=== PATIENT | female | born 1950 | race Caucasian/White ===

== ENCOUNTER 2021-09-18 14:24 | Inpatient (IN) | payer MEDICARE ==
[~2021-09-18] VITALS: Ht 154.9 cm; Wt 51.8 kg
[2021-09-18 15:13] LABS: BASO % 0.2 % (0.0-2.0); GRAN # 9.9 K/mm3 (1.4-6.5); GRAN % 86.8 % (42.2-75.2); HEMOGLOBIN 15.7 g/dl (12.5-16.0); LYMPH # 0.7 K/mm3 (1.2-3.4); LYMPH % 5.9 % (20.0-51.0); MEAN CELL VOLUME 85 fl (80.0-100.0); MEAN CORPUSCULAR HEMOGLOBIN 28 pg (27.0-31.0); MEAN CORPUSCULAR HGB CONC 33 g/dl (33.0-37.0); MEAN PLATELET VOLUME 9.9 fl (7.4-10.4); MONO # 0.7 K/mm3 (0.1-0.6); MONO % 6.1 % (1.7-9.3); PLATELET COUNT 367 K/mm3 (130-400); RED BLOOD COUNT 5.54 M/mm3 (4.10-5.30); REDCELL DISTRIBUTION WIDTH-CV 13.3 % (11.5-14.5)
[2021-09-18 15:25] LABS: ALBUMIN 3.3 gm/dL (3.4-4.8); BILIRUBIN,TOTAL 0.9 mg/dL (0.2-1.2); CALCIUM 9.2 mg/dL (8.4-10.2); CREATININE, serum 0.98 mg/dL (0.57-1.11); POTASSIUM 3.6 mmol/L (3.5-4.5); TOTAL PROTEIN 7.8 gm/dL (6.2-8.1)
[2021-09-18 17:38] LABS: COLLECTION METHOD CLEAN CATCH
[2021-09-18 17:57] LABS: MUCOUS Present /lpf; PH 5 (5-8); SQUAMOUS EPITHELIAL None Seen /hpf; URINE APPEARANCE Hazy; URINE BACTERIA None Seen /hpf; URINE BILIRUBIN Negative (NEGATIVE); URINE BLOOD 1+ (NEGATIVE); URINE COLOR Yellow; URINE GLUCOSE Negative (NEGATIVE); URINE KETONE 1+ (NEGATIVE); URINE LEUKOCYTE ESTERASE Negative (NEGATIVE); URINE NITRATE Negative (NEGATIVE); URINE PROTEIN(semi-quant) 2+ (NEGATIVE); URINE UROBILINOGEN Negative (NEGATIVE)
--- NOTE | 2021-09-18 19:45 | NUR ---
Initial assessment done- just up from ER around 1814 eliseo- VSS, pt was sound asleep- did awaken to assess, drowsy, oriented to name and knows her birthday but does not know date/year - speaks very softly, goes right back to sleep-- denies pain, SOB, o2 at 2L/nc, IV fluids of NS at 100cc/hr, not answering questions- going back to sleep- tried to ask if she has family? no answer,
[2021-09-18 20:00] VITALS: BP 144/68; PULSE 73
[2021-09-18 22:01] VITALS: BP 158/64; PULSE 63; TEMP 98.1
[2021-09-18 22:16] VITALS: BP 149/81; PULSE 69
[2021-09-19] VITALS (7 sets, daily range): BP systolic 154–173; BP diastolic 88–100; PULSE 70–107; TEMP 97.6–103.2
--- NOTE | 2021-09-19 05:06 | NUR ---
Much more awake, alert this morning, VSS, afebrile during the night, o2 sats 92% on 2 L/nc, oriented to person ,place date and year- more unsure of events that lead up to her being in the hospital- using call light appropriately. Did walk with assist to bathroom during the night, bed alarm on. IV fluids of NS at 100cc/hr.
[2021-09-19 06:55] LABS: HEMATOCRIT 41.7 % (37.0-47.0); MEAN CELL VOLUME 85 fl (80.0-100.0); MEAN CORPUSCULAR HEMOGLOBIN 29 pg (27.0-31.0); MEAN CORPUSCULAR HGB CONC 34 g/dl (33.0-37.0); MEAN PLATELET VOLUME 10.2 fl (7.4-10.4); PLATELET COUNT 349 K/mm3 (130-400); REDCELL DISTRIBUTION WIDTH-CV 13.3 % (11.5-14.5)
[2021-09-19 07:16] LABS: C-REACTIVE PROTEIN 13.71 mg/dL (0.00-0.50); CALCIUM 8.1 mg/dL (8.4-10.2); CREATININE, serum 0.75 mg/dL (0.57-1.11); MAGNESIUM 2.2 mg/dL (1.6-2.6); POTASSIUM 3.5 mmol/L (3.5-4.5)
[2021-09-19 07:42] LABS: BAND 20 % (0-10); LYMPHOCYTE 7 % (20.0-51.0); NEUTROPHILS 70 % (42.0-75.2); PLATELET ESTIMATE NORMAL (NORMAL)
--- NOTE | 2021-09-19 11:14 | NUR ---
AFTER GETTING UP TO COMMODE, PT FOUND TO BE VERY WEAK AND TIRED. WHEN BACK TO BED O2 SATS WERE IN LOW 80'S ON 3 L NC. RT NOTIFIED, PT NOW REQUIRING 10 L HIGH FLOW NC TO MAINTAIN SATS AT 90%.
--- NOTE | 2021-09-19 14:20 | NUR ---
PT REFUSING HEAD CT AT THIS TIME.
--- NOTE | 2021-09-19 16:20 | NUR ---
[employer] maintenance worker attempted to contact patient x3. Patient's address listed is at [facility]. Contact made to attempt to obtain emergency contact information but the patient has not lived there since 2014. Patient's friend Dahiana contacted. She was unaware of the patient being in the hospital. She is unaware of where the patient is currently living stating "she wont give anyone her address". Dahiana states that the patient does have children, most of whom live in other countries. Dahiana knew of a daughter named Yasmin and had a phone number as [phone]. Attempt was made to contact the daughter and was unsuccessful.
[2021-09-19 19:21] LABS: ARTERIAL BLD GAS O2 SATURATION 97.6 % (92-100); ARTERIAL BLD GAS TCO2 CT 22.8; ARTERIAL BLOOD GAS BASE EXCESS 0.1 (-2-2); ARTERIAL BLOOD GAS HCO3 21.9 meq/L (22-26); ARTERIAL BLOOD GAS PO2 95.4 mmHg (80-100); ARTERIAL BLOOD GAS pH 7.51 (7.35-7.45)
--- NOTE | 2021-09-19 19:44 | NUR ---
PT WITH INCREASING OXYGEN NEEDS THROUGHOUT THE SHIFT. PT REFUSING REMDESIVR, LOVENOX, DECADRON AND HEAD CT THIS SHIFT DESPITE EFFORTS TO EDUCATE. PT BECAME FEBRILE THIS EVENING, PT BECOME LESS ORIENTED WHILE FEBRILE. PT NEEDED ASSISTANCE TO BEDSIDE COMMODE D/T DISORIENTATION AND EXTREME FATIGUE. PT NOW REQUIRING 15 L HIGH FLOW NC. RT AND HOSPITALIST NOTIFIED. BLOOD GASES DRAWN.
--- NOTE | 2021-09-19 22:39 | NUR ---
ALERT AND OX4. DENIES SOA, CHEST PAIN OR DIZZY. STATES SHES FINE. INITALLY WASNT SURE ABOUT TAKING DOXY, AND LISINPRIL BUT DID AFTER EXPLAINING MEDS BUT STILL VERY HESITANT. TYL WORKING TO BRING FEVER DOWN. POC DISCUSSED. CALL LIGHT WI REACH.
[2021-09-20 05:04] VITALS: BP 160/74; PULSE 80; TEMP 98.4
[2021-09-20 07:47] VITALS: BP 1691/86; PULSE 94; TEMP 103.1
--- NOTE | 2021-09-20 10:36 | NUR ---
PT RESTING IN BED. MORNING MEDICATIONS GIVEN. SHIFT ASSESSMENT COMPLETED. PT NON-RESPONSIVE TO THIS RN's QUESTION AND COMMANDS. WILL CONTINUE TO MONITOR.
[2021-09-20 12:02] LABS: HEMATOCRIT 47.5 % (37.0-47.0); HEMOGLOBIN 14.7 g/dl (12.5-16.0); MEAN CORPUSCULAR HEMOGLOBIN 29 pg (27.0-31.0); MEAN CORPUSCULAR HGB CONC 31 g/dl (33.0-37.0); MEAN PLATELET VOLUME 9.7 fl (7.4-10.4); PLATELET COUNT 382 K/mm3 (130-400); RED BLOOD COUNT 5.11 M/mm3 (4.10-5.30); REDCELL DISTRIBUTION WIDTH-CV 13.5 % (11.5-14.5)
[2021-09-20 12:03] LABS: MEAN CELL VOLUME 93 fl (80.0-100.0)
[2021-09-20 12:14] LABS: C-REACTIVE PROTEIN 8.31 mg/dL (0.00-0.50); CALCIUM 8.5 mg/dL (8.4-10.2); CREATININE, serum 0.69 mg/dL (0.57-1.11); POTASSIUM 3.1 mmol/L (3.5-4.5)
[2021-09-20 12:43] VITALS: BP 152/82; PULSE 83; TEMP 97.7
--- NOTE | 2021-09-20 16:15 | NUR ---
Call Person made a report to Adult Protective Services in reference to condition of patient's home. CARMITA collaborated with RNLaura who advised patient is not responsive to any questions or commands. CARMITA contacted patient's daughter, Yasmin (ph#[phone]) who advised she lives in [place] at this time and that patient has no local family. Yasmin advised patient is not and has six children total. Yasmin will have to follow up on information for patient's six children as she is not in contact with all of them. Yasmin states her older brother, Ramakrishna lives in [place]. Yasmin advised to her knowledge patient does not have a primary care physician as she is "not pro medicine". Yasmin advised patient is normally independent with ADLS and does not use any DME. Yasmin does not believe patient has DPOA-HC. CARMITA advised Yasmin that post acute rehab is recommended. Yasmin is unsure if patient would be open to this. CARMITA contacted [place] with [facility] and gave referral.
[2021-09-20 17:00] VITALS: BP 156/81; PULSE 72; TEMP 98.7
--- NOTE | 2021-09-20 18:27 | NUR ---
R SIDE OF FACE APPEARS TO BE DROPPING. PT IS ABLE TO SMILE AND STICK OUT TONGUE. IS FOLLOWING VERBAL COMMANDS. HAS NORMAL STRENGTH IN ALL EXTREMITIES.
[2021-09-20 19:45] VITALS: BP 151/91; PULSE 80; TEMP 96.9
--- NOTE | 2021-09-20 23:11 | NUR ---
ALERT AND OX3. QUIET AND DOES NOT ANSWER QUESTION, SEEMS TO IGNORE WHEN ASKING HER QUESTIONS. SHE DID TAKE DOXY AND EFF K. INFORMED PT OF POC, DID NOT RESPOND TO NURSE FOR THAT EITHER. CALL LIGHT WI REACH.
[2021-09-21] VITALS (182 sets, daily range): BP systolic 140–184; BP diastolic 85–115; PULSE 80–110; TEMP 97.4–98.4; O2SAT 79–95
[2021-09-21 07:24] LABS: HEMATOCRIT 44.2 % (37.0-47.0); MEAN CORPUSCULAR HEMOGLOBIN 29 pg (27.0-31.0); MEAN CORPUSCULAR HGB CONC 34 g/dl (33.0-37.0); MEAN PLATELET VOLUME 10.2 fl (7.4-10.4); PLATELET COUNT 419 K/mm3 (130-400); RED BLOOD COUNT 5.23 M/mm3 (4.10-5.30); REDCELL DISTRIBUTION WIDTH-CV 13.2 % (11.5-14.5)
[2021-09-21 07:30] LABS: MEAN CELL VOLUME 85 fl (80.0-100.0)
[2021-09-21 07:40] LABS: C-REACTIVE PROTEIN 8.62 mg/dL (0.00-0.50); CALCIUM 8.9 mg/dL (8.4-10.2); CREATININE, serum 0.66 mg/dL (0.57-1.11); MAGNESIUM 1.9 mg/dL (1.6-2.6); POTASSIUM 3.4 mmol/L (3.5-4.5)
[2021-09-21 08:03] LABS: BAND 27 % (0-10); LYMPHOCYTE 6 % (20.0-51.0); METAMYELOCYTE 1 % (0-0); NEUTROPHILS 60 % (42.0-75.2); NUCLEATED RED BLOOD CELL 1 (0-6); PLATELET ESTIMATE NORMAL (NORMAL)
[2021-09-21 10:08] LABS: ARTERIAL BLD GAS O2 SATURATION 91.4 % (92-100); ARTERIAL BLD GAS TCO2 CT 23.3; ARTERIAL BLOOD GAS HCO3 22.5 meq/L (22-26); ARTERIAL BLOOD GAS PCO2 28.1 mmHg (35-45); ARTERIAL BLOOD GAS PO2 55.6 mmHg (80-100); ARTERIAL BLOOD GAS pH 7.52 (7.35-7.45)
--- NOTE | 2021-09-21 10:09 | NUR ---
PT RESTING IN BED. A&O X3 THIS MORNING. MORNING MEDICATIONS GIVEN. SHIFT ASSESSMENT COMPLETED. PT HAD A SOFT FORMED BOWEL MOVEMENT THIS MORNING. DENIES ANY PAIN. WILL CONTINUE TO MONITOR.
--- NOTE | 2021-09-21 10:49 | NUR ---
THIS RN WAS CALLED BY TELEMETRY AND NOTIFIED OF HEART RATE SUSTAINED IN THE 120s. VITALS OBTAINED. BP 188/122, O2 88%, HR 128, RR 22. RT AND DR. GONZALEZ CONTACTED.
--- NOTE | 2021-09-21 11:12 | NUR ---
dope worker contacted patient via telephone due to COVID. Patient stated that she lives alone and has been independent with her activities of daily living, including driving. Worker encouraged patient to work with therapies, as she had declined physical therapy request previously. Occupational therapy recommends post acute rehab. Awaiting [facility] referral and will plan for rehab placement upon discharge planning.
[2021-09-21 11:51] LABS: ARTERIAL BLD GAS O2 SATURATION 86.7 % (92-100); ARTERIAL BLOOD GAS BASE EXCESS 0.8 (-2-2); ARTERIAL BLOOD GAS HCO3 21.2 meq/L (22-26); ARTERIAL BLOOD GAS PCO2 24.5 mmHg (35-45); ARTERIAL BLOOD GAS pH 7.56 (7.35-7.45)
[2021-09-21 11:52] LABS: ARTERIAL BLOOD GAS PO2 46.4 mmHg (80-100)
--- NOTE | 2021-09-21 12:44 | NUR ---
CALLED REPORT DOWN TO ICU, STATE THEY WILL CALL ME BACK WHEN A BED IS READY.
--- NOTE | 2021-09-21 15:21 | NUR ---
I visited with patient at length regarding PICC placement. Patient is tearful. She nodded her head yes when I asked if she was overwhelmed, scared, and tired. Reassured patient. Patient kept repeating that I do not want a visit about this. "I want to be left alone". I attempted again to discuss PICC placement and she is not receptive. I will return in a.m. and discuss PICC placement again at that time.
--- NOTE | 2021-09-21 15:28 | NUR ---
Patient on 60 liters of oxygen and is being transferred down to ICU. SW notified ICU SW.
[2021-09-21 17:14] LABS: ARTERIAL BLD GAS O2 SATURATION 86.4 % (92-100); ARTERIAL BLD GAS TCO2 CT 22.1; ARTERIAL BLOOD GAS BASE EXCESS -0.6 (-2-2); ARTERIAL BLOOD GAS HCO3 21.3 meq/L (22-26); ARTERIAL BLOOD GAS PCO2 28.4 mmHg (35-45); ARTERIAL BLOOD GAS pH 7.49 (7.35-7.45)
[2021-09-21 17:15] LABS: ARTERIAL BLOOD GAS PO2 48.7 mmHg (80-100)
--- NOTE | 2021-09-21 17:48 | NUR ---
REPORT GIVEN TO JOSUÉ MONTES.
--- NOTE | 2021-09-21 18:30 | NUR ---
Received report from JOSUÉ Garcia. All medications verified and all questions answered. Patient resting in bed in airborne/contact precautions d/t positive covid test result. VSS. Patient on airvo at 60L at 95% Will resume care of patient at this time.
[2021-09-22] VITALS (504 sets, daily range): BP systolic 62–184; BP diastolic 38–127; PULSE 38–81; TEMP 97.5–98.2; O2SAT 76–100
--- NOTE | 2021-09-22 00:31 | NUR ---
0031 - this RN notified Olivia that patient had taken bipap mask off and was fighting staff when staff attempting to put airvo or bipap mask on. Pts sats dropped into the low 80s. this RN placed mitts on patient and was able to get airvo back on patient. pt becoming increasingly confused and swatting at staff hands when attempting to put airvo on. this RN notified Olivia of patient sats decreasing and patient becoming more confused and restless. This RN administered 0.5mg of ativan IV. 0035 - This RN notified Dr. Deutsch of patient not keeping airvo or bipap on and sats decreasing as low at 78% and pt becoming more confused and drowsy. Dr. Deutsch stated that pt would need to be intubated. 37 - Olivia notified of Dr. Deutsch suggesting pt needing intubated 004 - Olivia at bedside assessing patient and attempting to call pts daughter. pt no longer verbally responsive and appearing more drowsy. VSS 0051 - pt BP decreased to 69/42 with a MAP of 59, hr of 53 at 85% SpO2. this RN received order from Olivia to start 1L NS bolus. 0105 - received order from [place] to start levophed gtt. levophed gtt started at this time at 21.3mls/hr in peripheral line. Dr. Esparza at bedside to begin intubation. 75mg of succs and 20mg of etomidate given at this time prior to intubation 0109 - glidescope used to assisst with intubation 0112 - ETT placed, bilateral breath sounds heard, no color change noted on CO2 detector, tube placed at 24 at the teeth 0115 - ETT exchanged 0117 - bilateral breath counds heard, color change noted on CO2 detector 0124 - chest xray to verify tube placement completed 0130 - low tidal volumes noted on ventilator monitor Dr. Carreon at bedside to exchange ETT, pt started on propofol gtt at this time 0138 - ETT exchanged 0150 - ETT exchanged again d/t leak in ETT cuff, 10mg of vecuronium given at this time. Dr. Carreon at bedside. 0152 - patient received 1mg of atroping at this time d/t HR of 38BPM, at this time RT began bagging patient with SpO2 of 79% 0158 - ETT exchanged, CO2 change detected, bilateral breath sounds heard, ETT 24 at the teeth. Vent settings at 380 TV, RR 16, PEEP 14, FIO2 100% 0200- OG placed 0203 - CXR to verify placement completed. CXR read by Dr. Carreon, ETT pulled back 2cm. 0210 - blanco placed at this time 0130 - patient started on propofol gtt at 6.8mls/hr and fentanyl at 1.3mls/hr
[2021-09-22 03:25] LABS: ARTERIAL BLOOD GAS PCO2 30.6 mmHg (35-45); ARTERIAL BLOOD GAS pH 7.51 (7.35-7.45)
[2021-09-22 03:26] LABS: ARTERIAL BLD GAS O2 SATURATION 88.6 % (92-100); ARTERIAL BLOOD GAS BASE EXCESS 1.5 (-2-2); ARTERIAL BLOOD GAS HCO3 23.6 meq/L (22-26); ARTERIAL BLOOD GAS PO2 49.1 mmHg (80-100)
[2021-09-22 03:43] LABS: HEMATOCRIT 41.6 % (37.0-47.0); HEMOGLOBIN 14.4 g/dl (12.5-16.0); MEAN CELL VOLUME 83 fl (80.0-100.0); MEAN CORPUSCULAR HEMOGLOBIN 29 pg (27.0-31.0); MEAN CORPUSCULAR HGB CONC 35 g/dl (33.0-37.0); MEAN PLATELET VOLUME 9.6 fl (7.4-10.4); PLATELET COUNT 423 K/mm3 (130-400); RED BLOOD COUNT 5.02 M/mm3 (4.10-5.30); REDCELL DISTRIBUTION WIDTH-CV 13.2 % (11.5-14.5)
--- NOTE | 2021-09-22 03:45 | NUR ---
BLOOD TINGED SECRETIONS
[2021-09-22 03:55] LABS: ARTERIAL BLD GAS O2 SATURATION 99.5 % (92-100); ARTERIAL BLD GAS TCO2 CT 21.3; ARTERIAL BLOOD GAS BASE EXCESS -3.1 (-2-2); ARTERIAL BLOOD GAS HCO3 20.3 meq/L (22-26); ARTERIAL BLOOD GAS pH 7.42 (7.35-7.45)
[2021-09-22 03:56] LABS: ARTERIAL BLOOD GAS PO2 290.4 mmHg (80-100)
[2021-09-22 04:15] LABS: C-REACTIVE PROTEIN 6.2 mg/dL (0.00-0.50); CALCIUM 8.3 mg/dL (8.4-10.2); CREATININE, serum 0.76 mg/dL (0.57-1.11); MAGNESIUM 1.9 mg/dL (1.6-2.6); PHOSPHOROUS 3.3 mg/dL (2.3-4.7); POTASSIUM 3.6 mmol/L (3.5-4.5)
[2021-09-22 05:04] LABS: BAND 19 % (0-10); BASOPHIL 1 % (0-2); LYMPHOCYTE 5 % (20.0-51.0); METAMYELOCYTE 5 % (0-0); NEUTROPHILS 64 % (42.0-75.2); PLATELET ESTIMATE INCREASED (NORMAL)
[2021-09-22 05:07] LABS: TEAR DROP CELLS 1+
--- NOTE | 2021-09-22 05:36 | NUR ---
Sedation vacation not attempted d/t patient being newly intubated and agitated and restless when sedation medication decreased
--- NOTE | 2021-09-22 08:45 | NUR ---
Dr. Forutne rounding on unit. Requests asistance from this RN related to plan of care. Yesterday when he rounded on patient she agreed that she would like to be on the ventilator if she needed it, but she did not want IV medications for COVID treatment. Patient now intubated & he questions if family would like to start IV medications for COVID. This RN called the patient's daughter (Yasmin [phone]). This RN discussed that the patient does not have a DPOA or a living will. The hospital must follow guidance from the [facility] regarding decision makers. The patient's 6 children are all shared decision makers; the patient is not . Yasmin stated that the last time she talked with her mother she stated "have the state make decisions about me." Yasmin advised that her & her siblings have been estranged from their mother for decades. The patient has a sister that lives in [place], but Yasmin was not sure of their relationship. Advised Yasmin that someone from the family would need to be the spokesperson for the other siblings & that social work would be contact about further contact information. Briefly discussed the option of guardianship, but advised that it was not a quick process & there would need to be decisions made daily for their mother. Dr. Fortune talked with Yasmin & gave clinical update. Yasmin was on speaker phone for her conversation with Dr. Fortune. Yasmin repeated several times that she would continue with her mother's wishes & not to give the IV medications for COVID.
--- NOTE | 2021-09-22 09:00 | NUR ---
Patient's daughter, Yasmin, calls this RN stating that she talked with some of her siblings. They all agree that Ramakrishna will be the decision maker. Advised that we need to hear from all of her siblings that Ramakrishna will be the decision maker. Yasmin provided this RN with 2 of her sisters phone numbers that lived internationally. Yasmin also provided this RN with the patient's sister's phone number in [facility] (Laura) but stated that she is having health issues herself & it would not be good to contact her. Laura speaks fluent Vietnamese & would be able to talk to the patient when she is able. Advised Yasmin again that all of the siblings must be on the same page in regards to plan of care. Yasmin brought up her mother's wishes for the "state" to make her decisions. Advised that guardianship is a long process & we would need to discuss with each of the patient's children prior to pursuing. Yasmin will talk with her brother to get phone numbers for her other siblings. Daughter - Blanka [phone] Daughter - Denisa [phone] Sister - Laura [phone]
--- NOTE | 2021-09-22 10:00 | NUR ---
Patient's daughter Yasmin calls this RN requesting a family meeting soon. 4 of the patient's children live internationally & later in the day would not be an ideal time. Arranged Zoom meeting & information sent to Yasmin to share with her siblings. Meeting time is 1030. Dr. Fortune & Dr. Salter informed at 1010 of meeting time.
--- NOTE | 2021-09-22 10:30 | NUR ---
Guerline Baez (Social Work) & this RN met via Zoom with patient's siblings. Dr. Fortune provided family with clinical update. This RN advised family on the decision making hierarchy that we must follow based on [place] statute. Briefly discussed the option for guardianship, but the time needed if that is what they would agree to do. All of the children agree that they want to follow their mother's wishes & not pursue the IV medications for COVID. Ramakrishna stated that they do not want life saving measure or life support for their mother. Dr. Fortune questioned family on whether or not they wanted to continue with the ventilator since it is a form of lide support. All children agreed that patient should be removed from ventilator & comfort care measures should be initiated. Family denied catholic or spiritual traditions that need to be honored. They will discuss post mortem plans. Ramakrishna will be the contact for future communication [phone]. Children in attendance, by order, via Zoom: Denisa, daughter Iris, daughter Ramakrishna, son Blanka, daughter Lony, daughter Yasmin, daughter
--- NOTE | 2021-09-22 10:48 | NUR ---
frog or oyster farmworker attended family meeting with inspector floor sub assembly Dr.Singh Lorraine via zoom with the patients 6 children listed below by order: 1- Orley, Daughter 2- Iris, Daughter 3-Ramakrishna, Son 4-Iris, Daughter 5-Yasmin, Daughter The children are very adamant about respecting the patients wishes.All children are in agreement that the patient would not want to be intubated or any other life saving measures. After a detailed discussion form the physician including the education from the physician that if we were to extubate the patient, she would likely not survive. All children verbalize their understanding of this and wish to proceed with extubation. Children verbalize that the patient has no cultural traditions that would need to be respected. Children have appointed the patient's son Ramakrishna ([phone]) as the central contact to call once the patient passes.
--- NOTE | 2021-09-22 12:50 | NUR ---
PT GIVEN PAIN AND ANXIETY MEDICATIONS. PT EXTUBATED FOR COMFORT. PT RESTING COMFORTABLY. WILL CONTINUE TO MOTNIOR
--- NOTE | 2021-09-22 17:40 | NUR ---
REPORT CALLED TO CHYNA MOSES. ALL QUESTIONS ANSWERED.
--- NOTE | 2021-09-22 18:25 | NUR ---
Pt transported to room 301. Lorraine RN met bedside. Pt repositioned in bed. Call light given. All questions answered.
--- NOTE | 2021-09-22 18:39 | NUR ---
Patient to room 301 by bed. Patient placed on right side. Valencia intact. IV CDI. Patient positioned for comfort. Comfort care in place. Covid precautions in place. Call light within reach
[2021-09-23 08:56] VITALS: BP 165/94; PULSE 77; TEMP 97.9
--- NOTE | 2021-09-23 10:29 | NUR ---
PERFORMED A BEDSIDE SWALLOW STUDY ON PT AND SHE HAS NO ISSUES. NOTIFIED DR. GONZALEZ AND WAS DIRECTED TO CONTINUE WITH REGULAR DIET TOLERATED.
--- NOTE | 2021-09-24 04:59 | NUR ---
Patient resting quietly, has been sitting up and talking periodically throughout shift, drinking fluids, denies pain, comfort care continues.
[2021-09-24 08:22] VITALS: BP 143/86; PULSE 90; TEMP 97.9
--- NOTE | 2021-09-24 08:24 | NUR ---
PT SITTING UP IN BED EATING BREAKFAST. MORNING MEDICATION GIVEN. SHIFT ASSESSMENT COMPLETED. CRACKLES NOTED WHEN AUSCULTATED. PICC LINE FLUSHES AND HAS GOOD RETURN. CURRENTLY ON 2L NC. DENIES ANY PAIN. FEELS LIKE SHE NEEDS TO HAVE A BOWEL MOVEMENT, GOT UP TO THE BATHROOM AND UNSUCESSFUL. O2 SAT IN THE LOW 80S. WILL CONTINUE TO MONITOR.
--- NOTE | 2021-09-24 14:50 | NUR ---
Antoine tried to call (covid +) pt to talk about discharge options. No answer Comfort care etc.. Dr. Salter called Antoine to request we speak to pt, because pt is refusing help.
--- NOTE | 2021-09-24 15:46 | NUR ---
Sw retried to call pt at 3:45pm via phone due to covid +. Sw to call down to medical floor.
[2021-09-24 19:38] VITALS: BP 135/78; PULSE 94; TEMP 98.1
[2021-09-25 01:39] VITALS: BP 149/91; PULSE 81; TEMP 98.1
[2021-09-25 03:46] VITALS: BP 154/89; PULSE 81; TEMP 98.4
--- NOTE | 2021-09-25 06:32 | NUR ---
PT HAD AN UNEVENTFUL NIGHT. AT END OF SHIFT PT SEEMED ANXIOUS THAT SHE IS STILL IN THE HOSPITAL. PT ASKED IF SHE COULD LEAVE TO RUN [facility] AND THEN RETURN TO HOSPITAL AFTER DONE WITH [facility] AND BILLS PAID. SHE SHOWED SOME INTEREST IN LEARNING ABOUT MEDICATIONS. THIS RN INFORMED HER THAT SHE CAN MAKE ANY DECISION ABOUT HER MEDICAL CARE. THIS RN WILL PASS THE INFORMATION TO DAYSHIFT NURSE AND TO SOCIAL WORK OR PROVIDER. THIS RN IS CONCERNED THAT PT DOES NOT HAVE ENOUGH KNOWLEDGE TO MAKE DECISIONS. PT IS STILL ON 2 L AND RESPIRATIONS SOUND LABORED, BUT PT DENIES ANY INCREASE OF OXYGEN.
[2021-09-25 08:46] VITALS: BP 133/70; PULSE 86; TEMP 97.8
--- NOTE | 2021-09-25 10:17 | NUR ---
PT RESTING IN BED. MORNING MEDICATIONS GIVEN. ASSESSMENT COMPLETED. PICC LINE FLUSHES AND HAS GOOD BLOOD RETURN. EAGER TO BE DISCHARGED, STATES SHE HAS "ERRANDS TO RUN." HAD A FORMED SOFT STOOL THIS MORNING. DENIES PAIN OR ANY NEEDS. WILL CONTINUE TO MONITOR.
[2021-09-26 05:44] VITALS: BP 164/89; PULSE 88; TEMP 98
--- NOTE | 2021-09-26 07:46 | NUR ---
PT IS ASKING TO GET IN CONTACT WITH A FRIEND, MARY CRUZ, SHE DOES NOT HAVE THE NUMBER. PT STATES HER PHONE HAS BEEN TURNED OFF WHILE IN THE HOSPITAL, SHE DOES NOT HAVE ANYONE MANAGING HER FINANCES WHILE SHE IS HERE. INFORMED PT THAT SOCIAL WORK HAS BEEN ATTEMPTING TO CONTACT HER ON HER ROOM PHONE, SHE WILL LISTEN FOR THAT TODAY. HAS BEEN CONFUSED MOST OF THE NOC, ASKING TO USE RESTROOM TO VOID, WASN'T UNDERSTANDING THE BANKS WAS IN PLACE, ALSO ASKING TO HAVE PEOPLE CALLED DURING THE NOC, SEEMS MORE CLEAR NOW.
--- NOTE | 2021-09-26 09:30 | NUR ---
PT ALERT AND ORIENTED X3. DISORIENTED TO DATE. PT LUNGS DIMINISHED IN ALL LOBES. PT HAS 2+ PULSES IN ALL EXTREMITIES, CAP REFILL <3S. PT ON PHONE WITH FRIEND, STATING WISHES TO GO HOME. PT CATHETER IN PLACE, DRAINING CLEAR YELLOW. PT HAS CALL LIGHT WITHIN REACH, REQUESTING PEN AND PAPER.
[2021-09-26 10:30] LABS: HEMATOCRIT 40.2 % (37.0-47.0); HEMOGLOBIN 13.8 g/dl (12.5-16.0); MEAN CELL VOLUME 83 fl (80.0-100.0); MEAN CORPUSCULAR HEMOGLOBIN 28 pg (27.0-31.0); MEAN CORPUSCULAR HGB CONC 34 g/dl (33.0-37.0); MEAN PLATELET VOLUME 9.5 fl (7.4-10.4); PLATELET COUNT 256 K/mm3 (130-400); RED BLOOD COUNT 4.87 M/mm3 (4.10-5.30)
[2021-09-26 10:35] LABS: CALCIUM 8.5 mg/dL (8.4-10.2); CREATININE, serum 0.56 mg/dL (0.57-1.11); POTASSIUM 3.4 mmol/L (3.5-4.5)
[2021-09-26 11:24] LABS: BAND 5 % (0-10); BASOPHIL 1 % (0-2); METAMYELOCYTE 3 % (0-0); MYELOCYTE 2 % (0-0); NEUTROPHILS 76 % (42.0-75.2)
[2021-09-26 11:27] LABS: ANISOCYTOSIS 1+
[2021-09-26 11:28] LABS: LYMPHOCYTE 9 % (20.0-51.0); PLATELET ESTIMATE NORMAL (NORMAL)
--- NOTE | 2021-09-26 12:06 | NUR ---
NOTIFIED DR. CHE OF PT CONTINUING TO STATE SHE WANTS TO "GET OUT OF HERE" PT STATES SHE HAS A FRIEND WHO IS GOING TO PICK HER UP TODAY.
[2021-09-26 12:38] VITALS: BP 162/101; PULSE 99; TEMP 98
--- NOTE | 2021-09-26 13:00 | NUR ---
REMOVED PICC LINE, GAVE DC INSTRUCTIONS ON PICC, ASKED PT IF SHE WAS WILLING TO WAIT FOR OXYGEN TO ARRIVE BEFORE LEAVING, PT SAID NO, I SAID "DO YOU UNDERSTAND YOU COULD IF YOU GO HOME WITHOUT OXYGEN" PT SAID "YES, I WANT TO LET MY BODY TRY TO DO THINGS ON IT'S OWN".
[2021-09-26 13:55] VITALS: BP 164/90; PULSE 94; TEMP 97.6
--- NOTE | 2021-09-26 13:56 | NUR ---
PT LEAVING AMA, PAPERWORK SIGNED BY PT. DR. CHE INFORMED AND VISITED WITH PT. PT VS RETAKEN, BLOOD PRESSURE ELEVATED 164/90. PT PICC REMOVED BY CHARGE NURSE. PT WILLING TO TAKE MEDICATIONS BEFORE LEAVING. WILLING TO WAIT 30MIN AFTER PICC REMOVAL.
[2021-09-26] MEDS ORDERED: PRINIVIL40 MG PO (14:09)
[2021-09-26] MEDS ORDERED: OMNICEF 300MG300 MG PO (14:09)
--- NOTE | 2021-09-26 15:07 | NUR ---
PT DISCHARGED. PT PAPERWORK WITH PT. MULTIPLE ATTEMPTS OF EDUCATION GIVEN REGARDING SAFETY AND OXYGEN NEEDS. THIS RN EXPRESSED CONCERN OF PT BEING ABLE TO CARE FOR SELF, PT REPLIED, "YOU SHOULDN'T BE WORRIED, YOU SHOULD BE CONFIDENT. PT AMA PAPERWORK PLACED IN CHART. PT WHEELED OUT WITH THIS RN AND [employer]. EDUCATION PROVIDED ON SAFE TRANSPORTATION TO RIDE.
--- NOTE | 2021-09-26 16:26 | NUR ---
Forging Operator was notified that patient is going to leave AMA. CARMITA collaborated with PT about patient's mobility and Danyel PT advised he attempted to work with patient today however she refused. CARMITA collaborated with Hospitalist and RN as patient is currently requiring oxygen. JOSUÉ Barth spoke with patient who declined to work with RT or wait for oxygen to get set up. JOSUÉ Barth advised patient has arranged for someone to pick her up and her ride is waiting on her. CARMITA contacted patient by phone and asked patient if she would wait to have oxygen set up before she leaves. Patient states no, thank you for calling and hung up. CARMITA contacted Adult Protective Services Jaren VIZCARRA who has been assigned to patient's case and advised that patient would be leaving AMA. Jaren stated that he has been in contact with patient's children and they are aware that patient is leaving the hospital. Per Jaren, the patient's children advised that patient makes her own decisions and really does not listen to them. Jaren advised that he is unsure if he can visit patient as she is COVID positive. Jaren stated he will need to call his electrical assemblies supervisor. CARMITA was notified by Senior Clinical Data Manager that patient came back to admissions because she is locked out of her apartment. CARMITA searched patient's address ([address] ) and found that it is managed by [employer]. CARMITA contacted Nerissa, Management Trainee Marketing who will arrange to have patient's bernal returned to the apartment. Nerissa advised that patient was found down by maintenence who took patient's bernal for safe keeping. CARMITA arrived at admissions and spoke with patient's friend, Kashmir Schneider (ph#[phone]) who picked up patient. CARMITA advised Kashmir that Nerissa will bring the bernal to patient's apartment. Kashmir advised he will take patient home and make sure she gets into her apartment. Kashmir reports he has been in contact with patient's daughter. CARMITA updated Jaren, APS CARMITA and Senior Clinical Data Manager that patient is being taken home by her friend, Kashmir.
== END 2021-09-26 15:07 | disposition left against medical advice (07) | DRG 208 ==
LOC: COL.ER 14:24 → MEDICAL 16:51 → ICU 09-21 18:22 → MEDICAL 09-22 17:39
PROVIDERS: Family Medicine; Internal Medicine; Nurse Practitioner Family; ADMIT Internal Medicine
PROC: 5A0935A Assistance with Respiratory Ventilation, Less than 24 Consecutive Hours, High Flow/Velocity Cannula (ICD-10-PCS; 2021-09-18)
PROC: 5A1935Z Respiratory Ventilation, Less than 24 Consecutive Hours (ICD-10-PCS; principal; 2021-09-21)
PROC: 0BH17EZ Insertion of Endotracheal Airway into Trachea, Via Natural or Artificial Opening (ICD-10-PCS; 2021-09-21)
PROC: 02HV33Z Insertion of Infusion Device into Superior Vena Cava, Percutaneous Approach (ICD-10-PCS; 2021-09-22)
DX: U07.1 COVID-19 (principal); J12.82 Pneumonia due to coronavirus disease 2019; J96.01 Acute respiratory failure with hypoxia; G93.40 Encephalopathy, unspecified; E86.0 Dehydration; E87.6 Hypokalemia; K59.00 Constipation, unspecified; Z66 Do not resuscitate; Z91.14 Patient's other noncompliance with medication regimen; Z51.5 Encounter for palliative care
CPT/HCPCS: 99223-AI; 99231-AI; 99232-AI; 99233-AI; 99239; C1751; C1892; J0330; J0456; J0461; J0696; J1100; J1650; J2060; J2270; J2704; J3010; J3480; J7030; J7050; J7060; J8540